=== PATIENT | female | born 1985 | race Caucasian/White ===

== ENCOUNTER 2022-11-24 09:36 | Emergency (ER) | payer OTHER, SELFPAY ==
[2022-11-24 09:38] VITALS: BP 128/64; PULSE 97; RESP 16; TEMP 36.8; O2SAT 100; BMI 30.3
--- OUTSIDE RECORDS SUMMARY | 2022-11-24 09:55 | XMS_ITS | Continuity of Care Document ---
:1985 Author [facility] Address [address] [place] [phone] Care Team Providers Name Role Phone Not on Staff, PCP Primary Care Physician Unavailable [place] [facility] [place] [facility] Natali [employer] [address] [address] Attending Physician: Renea Schroeder MD Referring Physician: Not on Staff, Referring MD Allergies, Adverse Reactions, Alerts No Known Medication Allergies Medications FLUoxetine 40 mg oral capsule 1 capsule = 40 mg, By Mouth, Daily, 0 Refills, Maintenance, 10/27/20 10:37:00 EST, Partial fill uponpatient request if the prescription is for a schedule II opioid drug. Start Date: 10/27/20 Status: OrderedtraZODone 100 mg oral tablet 100 mg, 1, tablet, By Mouth, 2 times a day, Refills 0, Maintenance, 10/27/20 10:37:00 EST, Partial fill upon patient request if the prescription is for a schedule II opioid drug. Start Date: 10/27/20 Status: Ordered Problem List Condition Effective Dates Status Health Status Informant H/O migraine(Confirmed) Active Vital Signs Most recent to oldest [Reference Range]: 1 Height 162.5 cm (10/27/20 10:34 AM) Weight 81 kg (10/27/20 10:34 AM) Pulse Rate [55-90 bpm] 86 bpm (10/27/20 10:34 AM) Body Mass Index [18.5-24.99] 30.67 *>HHI* (10/27/20 10:34 AM) Blood Pressure [90-138/55-84 mm Hg] 117/58 mm Hg (10/27/20 10:34 AM) Blood pressure sites Arm, right (10/27/20 10:34 AM) Dry Weight 81 kg (10/27/20 10:34 AM) Weight Obtained Via Standing scale (10/27/20 10:34 AM) Dry Weight Obtained Via Standing scale (10/27/20 10:34 AM) Social History Social History Type Response Smoking Status Never smoker entered on: 07/27/18 Sex
--- OUTSIDE RECORDS SUMMARY | 2022-11-24 09:55 | XMS_ITS | Continuity of Care Document ---
:1985 Author Organization [facility] Address [address] [place] [id number]- Care Team Providers Name Role Phone Not on Staff, PCP Primary Care Physician Unavailable Encounter [facility] [place] Date(s): 10/27/20 - 11/26/20 [facility] [address] [address] [place] Attending Physician: Nestor Aceves Admitting Physician: Nestor Aceves Referring Physician: Nestor Aceves Allergies, Adverse Reactions, Alerts No Known Medication [...] Status Health Status Informant H/O migraine(Confirmed) Active Social History Social History Type Response Smoking Status Never smoker entered on: 07/27/18 Sex
--- NOTE | 2022-11-24 10:18 | ED.BACK ---
HPI - Back Pain/Injury General Chief Complaint: Back Pain/Injury Stated Complaint: Lower back pain x1 week. no inj Time Seen by Provider: 11/24/22 09:56 Source: patient Mode of arrival: ambulatory Limitations: no limitations History of Present Illness HPI Narrative: 37 yo female presents to the ER for evaluation of lower back pain for the last 1 week. She denies any injury or trauma. She states she woke up with the pain when she was trying to get out of bed one day. She reports the pain is across her entire lower back, worse with any movement or bending. She cannot recall any injuries or heavy lifting. She states the pain does not radiate, it is spastic and aching in nature. It is worse at night when she is trying to get comfortable to sleep. She put a pillow under her legs and had some relief last night. she reports intermittently taking ibuprofen with only brief improvement. She denies any urinary or bowel incontinence. No numbness, weakness, tingling down the legs. No difficulty with ambulation. MD elicited complaint: back pain Onset (ago): week(s) (1) Timing: progressively worsening Severity: moderate Similar Symptoms Previously: No Quality: sharp, stabbing and spasming Location: right lower back and left lower back Radiation: none Exacerbating factors: movement and supine positioning Relieving factors: immobilization and medication Context: unknown Associated symptoms: denies other symptoms Treatments prior to arrival: NSAIDS Work related injury: No Related Data Previous Rx's Medication Instructions Recorded cyclobenzaprine 10 mg tablet 10 mg PO TID PRN muscle spasm #14 11/24/22 tabs lidocaine 5 % topical patch 1 patch topical DAILY #15 ea 11/24/22 naproxen 500 mg tablet (Naprosyn) 500 mg PO BID #20 tabs 11/24/22 Allergies Allergy/AdvReac Type Severity Reaction Status Date / Time No Known Allergies Allergy Verified 11/24/22 09:40 Review of Systems Review of Systems: Yes all other systems are reviewed and are negative [facility] Social History Social History Advance Directives: No Advance Directives Information Provided: No Physical Exam Vital Signs: Vital Signs: Last Vital Signs Temp 98.2 F 11/24/22 09:38 Pulse 97 11/24/22 09:38 Resp 16 11/24/22 09:38 BP 128/64 11/24/22 09:38 Pulse Ox 100 11/24/22 09:38 O2 Del Method 11/24/22 09:38 BMI result Body Mass Index 30.3 Appearance: Alert. Oriented X3. No acute distress. HEENT: normal inspection CVS: Normal heart rate and rhythm. Pulses normal. Respiratory: No respiratory distress. Skin: Skin warm and dry. Normal skin color. Normal skin turgor. No rashes. Back: normal inspection, limited flexion due to pain. upper to lower lumbar area bilaterally has soft tissue tenderness and palpable spasm, no SI joint tenderness. Extremities: normal inspection x4. negative straight leg raise test Neuro: Oriented X 3. No motor deficit. No sensory deficit. Normal DTRs, normal gait Course Course Course Narrative: 37-year-old female presenting to the ER with low back pain for the last 1 week. No red flag symptoms of low back pain. Exam is consistent with muscle strain and spasm. Will treat accordingly. Will encourage her to follow-up with her primary care doctor for further evaluation, possible physical therapy referral. We discussed symptomatic management and return precautions. She is stable for discharge home. Work note provided per request. Medical Decision Making Differential Diagnosis Differential Diagnoses: The differential diagnosis associated with the presentation includes Inflammatory disorders, malignancy, , trauma, osteoporosis, nerve root compression, radiculopathy, plexopathy, degenerative disc disease, disc herniation, spinal stenosis, sacroiliac joint dysfunction, facet joint injury, and less likely infection Like epidural abscess, diskitis or paraspinal abscess. Independent Historian Clinical information obtained from an independent historian. History obtained from or confirmed by: Spouse External Record Review External record reviewed: Prior outpatient labs Tests considered The following testing was considered but not selected: X-ray and CT scan were considered however not indicated due to exam and clinical presentation. Prescription Management I considered prescription management with: Pain Medication Critical Care Time Critical Care Time Critical Care Time: No Discharge Plan Discharge Clinical Impression: Strain of lumbar region Patient Disposition: Home, Self-Care Instructions: Low Back Strain (ED), Lower Back Exercises (ED) Additional Instructions: Your pain is due to muscle strain and spasm. No bending, lifting or twisting. Use ice several times per day for 20 minutes at a time for the next 48 hours and then change to heat. Take medications as prescribed to help with pain and discomfort. Follow up with your Primary Care Doctor this week. If your pain worsens, if you develop new numbness, tingling, weakness, loss of function or incontinence call 911 or come back to the ER right away for evaluation. Prescriptions: New naproxen [Naprosyn] 500 mg tablet 500 mg PO BID Qty: 20 0RF cyclobenzaprine 10 mg tablet 10 mg PO TID PRN (Reason: muscle spasm) Qty: 14 0RF lidocaine 5 % adhesive patch,medicated 1 patch topical DAILY Qty: 15 0RF Rx Instructions: leave on most painful area for up to 12 hrs Stand Alone Forms: Work/School Release Interventions: ED Discharge Assessment Last Done: 11/24/22 11:03 Discharge Date/Time: 11/24/22 11:03
== END 2022-11-24 11:03 | disposition home or self-care (01) ==
PROVIDERS: Emergency Provider Emergency Medicine
DX: S39.012A Strain of muscle, fascia and tendon of lower back, initial encounter (principal); X50.9XXA Other and unspecified overexertion or strenuous movements or postures, initial encounter; Y93.84 Activity, sleeping; Y92.013 Bedroom of single-family (private) house as the place of occurrence of the external cause; Y99.8 Other external cause status
CPT/HCPCS: 99282; 99283